=== PATIENT | female | born 1955 | race Caucasian/White ===

== ENCOUNTER 2016-09-10 18:06 | Emergency (ER) | payer MEDICARE, SELFPAY | END 2016-09-10 20:39 | disposition home or self-care (01) | LOC: ER 18:06 | DX: R51 Headache (principal); E11.9 Type 2 diabetes mellitus without complications; I10 Essential (primary) hypertension; E04.0 Nontoxic diffuse goiter; Z90.49 Acquired absence of other specified parts of digestive tract; Z90.710 Acquired absence of both cervix and uterus; Z98.890 Other specified postprocedural states; Z88.5 Allergy status to narcotic agent; Z79.4 Long term (current) use of insulin; Z79.1 Long term (current) use of non-steroidal anti-inflammatories (NSAID); Z79.899 Other long term (current) drug therapy | CPT/HCPCS: 70450; 96372; 99283; 99283-25 ==